=== PATIENT | female | born 1975 | race Caucasian/White ===

== ENCOUNTER → 2022-06-17 11:44 | Outpatient (CLI) | payer BC, SELFPAY | PROVIDERS: PCP Family Medicine; Referring Provider Student in an Organized Health Care Education/Training Program; Visit Provider Student in an Organized Health Care Education/Training Program | DX: M81.0 Age-related osteoporosis without current pathological fracture (principal); Z87.311 Personal history of (healed) other pathological fracture | CPT/HCPCS: 77080 ==

== ENCOUNTER → 2023-04-20 16:07 | Outpatient (CLI) | payer BC, SELFPAY ==
--- NOTE | 2023-04-20 | DI.MG.S_ITS ---
BILATERAL DIGITAL SCREENING MAMMOGRAM 3D/2D WITH CAD: 04/20/2023 CLINICAL: Baseline exam. Routine screening. No prior exams were available for comparison. Both breasts are heterogeneously dense, which may obscure small masses (category c / 51-75% glandular tissue). Current study was also evaluated with a Computer Aided Detection (CAD) system. No significant masses, calcifications, or other findings are seen in either breast. IMPRESSION: NEGATIVE There is no mammographic evidence of malignancy. A 1 year screening mammogram is recommended. Based on the Tyrer Cuzick model (a risk assessment model) the patient's lifetime risk is 13.7% and her 10 year risk is 2.7%. According to the ACR, ACS, and NCCN guidelines, an annual breast MRI exam along with mammogram is recommended if the patient's lifetime risk is 20% or greater. This exam was interpreted at Station ID: [id number]. NOTE: For mammograms, a report in lay terms will be sent to the patient. Approximately 15% of breast malignancies will not be visualized mammographically. In the management of a palpable breast mass, a negative mammogram must not discourage biopsy of a clinically suspicious lesion. Electronically Signed By: Sarah means/mayito:04/21/2023 08:29:01 letter sent: Normal Exam ACR BI-RADS Category 1: Negative 3341F
== END ==
PROVIDERS: PCP Internal Medicine Cardiovascular Disease; Referring Provider Family Medicine; Visit Provider Family Medicine
DX: Z12.31 Encounter for screening mammogram for malignant neoplasm of breast (principal)
CPT/HCPCS: 77063; 77067

== ENCOUNTER 2023-06-18 07:14 | Day surgery (SDC) | payer BC, SELFPAY ==
[2023-06-18 07:35] VITALS: BMI 23.2
[2023-06-18 07:43] VITALS: BP 118/77; PULSE 79; RESP 18; TEMP 36.9; O2SAT 100
[2023-06-18] MEDS: LACTATED RINGERS 1,000 ML 42 ML IV (07:48)
--- NOTE | 2023-06-18 08:25 | PM.HP.1 ---
History of Present Illness History of Present Illness Date Patient Seen: 06/18/23 Time Patient Seen: 08:25 Chief complaint: Colonoscopy Narrative: Ellie is a 48-year-old woman who is here for a screening colonoscopy. She has never had 1 before. No family history of colon cancer. No melena or hematochezia. She has left hip osteoarthritis. PENDING SALE TO [facility] Surgical History (Updated 06/18/23 @ 07:34 by Nancie Brock RN) History of lumpectomy of left breast Family History (Updated 06/18/23 @ 07:34 by Nancie Brock RN) Other Cancer Social History household members: significant other Smoking Status: Former smoker alcohol intake: current Meds Home Medications and Allergies Home Medications Medication Instructions Recorded Confirmed Type levothyroxine 50 mcg tablet 50 mcg PO DAILY 06/18/23 06/18/23 History (Synthroid) Allergies Allergy/AdvReac Type Severity Reaction Status Date / Time No Known Drug Allergies Allergy Verified 06/18/23 07:33 Exam Vital Signs (past 8 hours): - 06/18/23 07:43 Temperature 98.5 F Pulse Rate 79 Respiratory Rate 18 Blood Pressure 118/77 Pulse Oximetry 100 Oxygen Delivery Method Room Air Oxygen Delivery Method Room Air Const General: healthy appearing Assessment & Plan Assessment and plan (1) Colon cancer screening: Status: Acute Plan We reviewed the risks and benefits colonoscopy for colon cancer screening and she would like to proceed.
--- NOTE | 2023-06-18 08:53 | PM.OP.COLON ---
Operative Date/Time/Diagnoses Date of procedure: 06/18/23 Time of procedure: 08:53 Pre-op diagnosis: Colon cancer screening Post-op diagnosis: same Procedure & Clinicians Study performed: Colonoscopy Same procedure as scheduled: Yes Surgeon: Victor M Guzman Procedure Notes Procedure in detail: Surgeon: Victor M Guzman MD Anesthesia: Luz Marina Mercedes CRNA Procedure: The patient was brought to the endoscopy suite, placed in left lateral decubitus position. The patient was connected to monitoring devices. A time-out was performed. Sedation was administered. Once the patient was adequately sedated, a digital rectal exam was performed and was normal. The scope was then inserted and advanced to the cecum where the appendiceal orifice was identified and photographed. The scope was then slowly withdrawn over greater than 6 minutes. The mucosa was thoroughly inspected. No polyps or other abnormalities were seen. The scope was retroflexed in the rectum. Mild internal hemorrhoids were seen. The scope was straightened and removed. The patient was awakened and brought to recovery. Scope withdrawal time: 8 minute Sedation time: 17 minutes EBL: 0 Findings: Mild internal hemorrhoids Post-procedure Recommendations: Colonoscopy in 10 years Disposition: PACU
[2023-06-18 08:54] VITALS: BP 120/75; PULSE 75; RESP 15; TEMP 36.6; O2SAT 100
[2023-06-18 08:59] VITALS: BP 97/77; PULSE 76; RESP 14; O2SAT 100
[2023-06-18 09:06] VITALS: BP 104/66; PULSE 74; RESP 14; O2SAT 100
[2023-06-18 09:10] VITALS: BP 120/60; PULSE 66; RESP 12; TEMP 36.8; O2SAT 100
== END 2023-06-18 09:24 | disposition home or self-care (01) ==
PROVIDERS: PCP Internal Medicine Cardiovascular Disease; Referring Provider Surgery; Visit Provider Surgery
PROC: 0DJD8ZZ Inspection of Lower Intestinal Tract, Via Natural or Artificial Opening Endoscopic (ICD-10-PCS; CPT 45378; principal; 2023-06-18 08:15)
DX: Z12.11 Encounter for screening for malignant neoplasm of colon (principal); K64.8 Other hemorrhoids
CPT/HCPCS: 45378; J2704

== ENCOUNTER → 2023-09-30 11:30 | Outpatient (CLI) | payer BC, SELFPAY ==
--- NOTE | 2023-09-30 | DI.RAD.S_ITS ---
Bone Density Report Name: CAT GARCIA Age: 48 Sex: Female Ethnicity: White Date of : 1975 Indication: monitoring treatment; prior fracture; Referring Provider: SELMA HANCOCK Study: Bone densitometry was performed. Exam Date: September 30, 2023 Accession number: [id number] Bone Density: Region BMD T-score Z-score Classification AP Spine(L1-L4) 0.967 -0.2 Femoral Neck (Left) 0.475 -2.8 Total Hip (Left) 0.688 -1.7 Femoral Neck (Right) 0.499 -2.6 Total Hip (Right) 0.766 -1.1 Total Hip Mean 0.727 -1.4 World Health Organization criteria for BMD impression classify patients as: Normal (T-score at or above -1.0), Osteopenia (T-score between -1.0 and -2.5), or Osteoporosis (T-score at or below -2.5). 10-year Fracture Risk: FRAX not reported because: Premenopausal woman Prior hip or vertebral fracture Treated for osteoporosis Previous Exams: -- Region Exam Age BMD T-score BMD Change BMD Change Date g/cm2 vs Baseline vs Previous -- AP Spine (L1-L4) 09/30/2023 48 0.967 0.020 (2.1%) 0.020 (2.1%) 06/17/2022 47 0.947 Total Hip(Left) 09/30/2023 48 0.688 -0.028 (-4.0%)* -0.028 (-4.0%)* 06/17/2022 47 0.716 Total Hip(Right) 09/30/2023 48 0.766 -0.035 (-4.4%)* -0.035 (-4.4%)* 06/17/2022 47 0.801 -- *Denotes significance at 95% confidence level, LSC for AP Spine = 0.022 g/cm2, LSC for Total Hip = 0.027 g/cm2 Impression: The patient's bone mass is below expected range for age, gender and ethnicity based on the Left Femoral Neck Z-score. The patient has risk factors, including: previous fracture. The BMD for the Total Hip(Left) decreased, changing by -4.0% since the last DXA exam. The BMD for the Total Hip(Right) decreased, changing by -4.4% since the last DXA exam. Discussion: SIGNIFICANT BONE LOSS OBSERVED. Adherence to therapy (including calcium and vitamin D intake) should be assessed. If compliance is not a factor, review management and exclusion of secondary causes of bone loss. It is important to ask patients whether they are taking their medications and to encourage continued and appropriate compliance with their osteoporosis therapies to reduce fracture risk. It is also important to review their risk factors and encourage appropriate calcium and vitamin D intakes, exercise, fall prevention and other lifestyle measures. Follow-Up: Consider a repeat BMD and Vertebral Fracture Assessment (VFA) exam in 2 years or sooner if medically necessary, to reassess this patient's status. Reported by: [facility] IN[facility]JIT ACOSTA M.D. on 09/30/2023 12:18:00 PM.
== END ==
PROVIDERS: PCP Family Medicine; Referring Provider Student in an Organized Health Care Education/Training Program; Visit Provider Student in an Organized Health Care Education/Training Program
DX: M81.0 Age-related osteoporosis without current pathological fracture (principal)
CPT/HCPCS: 77080

== ENCOUNTER → 2024-06-02 11:38 | Outpatient (CLI) | payer BC, SELFPAY ==
--- NOTE | 2024-06-02 11:38 | DI.MG.S_ITS ---
BILATERAL DIGITAL SCREENING MAMMOGRAM 3D/2D WITH CAD: 06/02/2024 CLINICAL: Routine screening. Comparison is made to exam dated: 04/20/2023 mammogram - [facility]. Both breasts are heterogeneously dense, which may obscure small masses (category c / 51-75% glandular tissue). Current study was also evaluated with a Computer Aided Detection (CAD) system. No significant masses, calcifications, or other findings are seen in either breast. Left breast scar marker. There has been no significant interval change. IMPRESSION: NEGATIVE There is no mammographic evidence of malignancy. A 1 year screening mammogram is recommended. Based on the Tyrer Cuzick model (a risk assessment model) the patient's lifetime risk is 13.7% and her 10 year risk is 2.8%. According to the ACR, ACS, and NCCN guidelines, an annual breast MRI exam along with mammogram is recommended if the patient's lifetime risk is 20% or greater. This exam was interpreted at Station ID: [id number]. NOTE: For mammograms, a report in lay terms will be sent to the patient. Approximately 15% of breast malignancies will not be visualized mammographically. In the management of a palpable breast mass, a negative mammogram must not discourage biopsy of a clinically suspicious lesion. Electronically Signed By: Tuan Yeung M.D. [facility] [place]/:06/02/2024 13:39:14 letter sent: Normal Exam ACR BI-RADS Category 1: Negative 3341F
== END ==
PROVIDERS: PCP Family Medicine; Referring Provider Family Medicine; Visit Provider Family Medicine
DX: Z12.31 Encounter for screening mammogram for malignant neoplasm of breast (principal); R92.333 Mammographic heterogeneous density, bilateral breasts
CPT/HCPCS: 77063; 77067

== ENCOUNTER → 2025-06-21 11:06 | Outpatient (CLI) | payer BC, SELFPAY ==
--- NOTE | 2025-06-21 11:08 | DI.MG.S_ITS ---
MM screening mammo BI: 06/21/2025. BI-RADS: 1 CLINICAL: 50-year old female for bilateral screening mammogram. Tyrer-Cuzick lifetime risk of 13.1%. No personal or first-degree family history of breast cancer. The patient had a prior left breast biopsy. PRIOR EXAMS 06/02/2024, 04/20/2023. MAMMOGRAPHY TECHNIQUE: 2D and 3D (tomosynthesis) digital mammographic views obtained, with additional images as needed for full coverage. Current study was also evaluated with a Computer Aided Detection (CAD) system. DENSITY C. The breasts are heterogeneously dense, which may obscure small masses. MAMMOGRAPHY FINDINGS Bilateral: No suspicious mass, asymmetry, microcalcification, or other abnormality seen. IMPRESSION: * No evidence of malignancy. RECOMMENDATIONS Bilateral * Annual screening mammography. OVERALL ASSESSMENT CATEGORY BI-RADS-1: Negative. The [employer] recommends annual screening mammography beginning at age 40 for women with average risk of breast cancer. ELECTRONICALLY SIGNED: Cecilia Jones M.D. on 06/21/2025 at 01:55:18 PM PT Interpreting Station ID: [id number]
== END ==
PROVIDERS: PCP Family Medicine; Referring Provider Family Medicine; Visit Provider Family Medicine
DX: Z12.31 Encounter for screening mammogram for malignant neoplasm of breast (principal); R92.333 Mammographic heterogeneous density, bilateral breasts
CPT/HCPCS: 77063; 77067